=== PATIENT | male | born 1990 | race Hispanic/Latino ===

== ENCOUNTER 2019-06-03 10:42 | Emergency (ER) | payer SELFPAY ==
[2019-06-03 10:43] VITALS: BP 139/81; PULSE 84; RESP 16; TEMP 36.6; O2SAT 100; BMI 22.6
--- NOTE | 2019-06-03 11:12 | CT_ITS ---
STUDY: CT ABDOMEN AND PELVIS WITHOUT CONTRAST REASON FOR EXAM: Male, 29 years old. RT FLANK PAIN, NO PREV HX OF [place] RADIATION DOSAGE (If Supplied By Facility): CTDIvol = ( 6.21 ) mGy, DLP = ( 299.21 ) mGycm TECHNIQUE: Transaxial images were obtained from the dome of the diaphragm to the symphysis pubis without oral contrast, and without intravenous contrast. Sagittal and coronal images were reconstructed. Individualized dose optimization techniques were used for this CT. COMPARISON: None. FINDINGS: The visualized lung bases are unremarkable. The visualized portions of the heart are within normal limits. Normal liver. Normal gallbladder and extrahepatic biliary system. Normal spleen. Normal pancreas. Normal bilateral adrenal glands. Normal right kidney. Normal left kidney. Normal visualized stomach. Normal small intestine. There is circumferential thickening of the colon wall without demonstrated pericolonic inflammatory changes. The appendix is visualized and appears normal. Normal abdominal aorta. Normal inferior vena cava. Normal retroperitoneum. Normal urinary bladder. Normal abdominal wall. Normal osseous structures. CT/Abdomen/Pelvis without Cont IMPRESSION: No hydronephrosis or urolithiasis. Colon wall thickening, consistent with colitis. Electronically Signed: Sree Arteaga MD at 12:22 EST Tel , Service support ,
--- NOTE | 2019-06-03 11:14 | ED.DCSUM_ITS ---
- ER Visit Summary Date of Service: 06/03/19 Chief Complaint: Right flank pain with nausea and vomiting. History of Present Illness: The patient is a 29 M with no past medical or surgical history. Sunday last week he did start feeling poorly over the weekend he developed right flank pain. And is started having nausea and vomiting. Subjective fever and chills. No dysuria. No melena. No diarrhea. Also states he has had some mild anterior abdominal pain. No prior history. Family history of gallbladder disease but not known kidney stones that he is aware of. Physical Examination: Young male no acute distress vital signs are stable afebrile. Female present the room. H EENT exam unremarkable. Neck nontender. Lungs clear to auscultation bilaterally. Heart regular rhythm no murmur. Abdomen soft mild tenderness right upper quadrant. No organomegaly or masses. No peritoneal signs. No McBurney's point tenderness. No Ramirez sign. No signs of obstruction. Left side is nontender. Patient moving all 4 extremities. Neurovascular intact. Back nontender. Skin normal. No jaundice. Neurologically is awake and alert with no focal motor deficits. Test Results: White count 8. Hemoglobin 16. Chemistries normal normal gap and creatinine. Liver enzymes normal. Lipase normal. UA normal. CT abdomen pelvis without contrast shows some mild colonic thickening consistent with a nonspecific colitis. I discussed all test results with the patient and his significant other. He did bring up that he forgot to mention earlier that he was told previously he had a colitis but he never followed up to have a colonoscopy or a biopsy. Emergency Department Course and Treatment: Patient treated with IV fluids, Zofran, morphine and Toradol. Labs and CAT scan to be obtained. Differential would include acute kidney stone versus gallbladder disease versus other. Repeat abdominal exam is doing well. He can be discharged to home. Treatment Plan: Follow-up with a local primary care physician. Disposition: Discharge Impression: Acute right flank pain with nausea and vomiting secondary to nonspecific colitis of uncertain etiology This note was generated with [employer] dictation software. It may contain incorrect words, spelling, and punctuation that were not noted in review of the chart prior to signing ED Disposition - Plan for ED Patient: Referrals: Care Physician,No Primary [Primary Care Provider] -
[2019-06-03 11:19] LABS: Bacteria 0 SEEN /hpf (None Seen); Mucous, Urine 0 SEEN /hpf (<or=2+); Red Blood Cells-Urine 0 SEEN /hpf (0-5); Squamous Epithelial Cells - UA 0 SEEN /hpf (0-5); White Blood Cells 0 SEEN /hpf (0-5)
[2019-06-03 11:22] LABS: Absolute Lymphocyte Count 2.01 X10^3/uL (0.83-4.51); Absolute Neutrophil Count 5.8 X10^3/uL (2.0-7.7); Basophil# 0.04 X10^3/uL; Basophil% 0.5 % (0-1); Eosinophil# 0.04 X10^3/uL; Eosinophils% 0.5 % (0-5); Lymphocyte # 2.01 X10^3/ul (4.0); Lymphocyte % 22.9 % (19-41); Mean Corpuscular Hgb 31.1 pg (27.0-32.0); Mean Corpuscular Volume 91.4 fL (80-94); Mean Platelet Vol. 9.9 fl (6.2-12.0); Monocyte# 0.83 X10^3/uL; Monocyte% 9.5 % (0-10); NRBC Flagged by Analyzer 0 % (0-5); Platelet Count 276 K/mm3 (150-450); RBC Distribution Width CV 12.7 % (11.6-14.6); RBC Distribution Width SD 42.3 fl (35.1-43.9); Red Blood Count 5.14 M/mm3 (4.6-6.2); White Blood Count 8.8 K/mm3 (4.4-11.0)
[2019-06-03] MEDS: 0.9% Normal Saline 1,000 ML 1000 ML IV (11:23)
[2019-06-03 11:24] LABS: Color, Urine Yellow (Yellow); Glucose, Dipstick Normal (Normal); Ketone-Dipstick Negative (Negative); Leukocyte Esterase-Dipstick Negative /ul (Negative); Nitrite-Dipstick Negative (Negative); Occult Blood-Urine 10 /ul (Negative); Protein-Dipstick Negative (Negative); Specific Gravity, Urine 1.015 (1.002-1.030); Urine Bilirubin Dipstick Negative (Negative); Urine Clarity Clear (Clear); Urine Urobilinogen Normal (Normal)
[2019-06-03] MEDS: Ketorolac 30 MG/ML Syringe IV (11:24)
[2019-06-03] MEDS: morphine 8 MG/ML Syringe IV (11:24)
[2019-06-03] MEDS: Ondansetron 4 MG/2 ML Vial IV (11:24)
[2019-06-03 11:33] LABS: AST(SGOT) 12 U/L (15-37); Alanine Aminotransfer ALT/SGPT 36 U/L (16-61); Albumin, Serum 4.4 g/dL (3.2-5.0); Alkaline Phosphatase 66 U/L (45-117); Anion Gap 7 (5-15); BUN 12 mg/dL (7-18); BUN/Creat Ratio 14.7 RATIO (10-20); Bilirubin, Direct 0.13 mg/dL (0.00-0.30); Chloride 108 mmol/L (98-107); Creatinine, Serum 0.82 mg/dL (0.70-1.30); EST Glomerular Filtration Rate 119 mL/min (>60); Est Glom Filt Rate - Afr Amer 144 mL/min (>60); Estimated Creatinine Clearance 142.59 ml/min; Globulin 3.2 g/dL (2.2-4.2); Glucose 100 mg/dL (74-106); Lipase 113 U/L (73-393); Potassium 3.6 mmol/L (3.5-5.1); Protein, Total 7.6 g/dL (6.4-8.2); Sodium Level 141 mmol/L (136-145)
--- NOTE | 2019-06-03 12:58 | ED.DEP ---
ED Disposition - Plan for ED Patient: Disposition: Home or Assisted Living Instructions: FLANK PAIN, Uncertain Cause Referrals: Nestor Cottrell MD [[facility]] - As soon as possible Additional Instructions: Tylenol and/or Motrin for pain. Follow-up with a local physician for further testing. If you continue to have problems you may need a colonoscopy and/or biopsies to determine the specific cause of your colitis.
[2019-06-03 13:05] VITALS: BP 124/67; PULSE 71; RESP 15; O2SAT 98
== END 2019-06-03 13:06 | disposition home or self-care (01) ==
PROVIDERS: Emergency Provider Emergency Medicine
DX: K52.9 Noninfective gastroenteritis and colitis, unspecified (principal); R10.9 Unspecified abdominal pain; Z72.0 Tobacco use
CPT/HCPCS: 74176; 80048; 80076; 81001; 83690; 85025; 96361; 96374; 96375; 99284; J7030; A4216; J2405

== ENCOUNTER 2019-06-13 16:06 | Emergency (ER) | payer SELFPAY ==
[2019-06-13 16:08] VITALS: BP 136/99; PULSE 94; RESP 16; TEMP 36.9; O2SAT 99; BMI 22.8
--- NOTE | 2019-06-13 16:23 | ED.VISSUMM ---
- ER Visit Summary Date of Service: 06/13/19 Chief Complaint: Left hand injury History of Present Illness: The patient is a 29 M who presents with left hand injury that occurred yesterday. Patient was using a nail in her that nails two by fours into concrete. Patient states this kicked back into his hand when he was using it. Patient states the pain has been constant throughout the day today. Patient states the pain is sharp and throbbing. Patient states the pain is worse with movement. Patient states the pain improves with rest. Patient admits to some tingling over the dorsal aspect of his left hand. Patient denies any weakness. Patient states the pain occasionally radiates to his forearm. Physical Examination: Vital signs are stable. Patient is afebrile. Patient is in no acute distress. Musculoskeletal exam reveals tenderness over the dorsal aspect of the left hand over the third and fourth metacarpals. There is no edema or ecchymosis. There is no bony crepitance or step-off. Range of motion was limited in all motions of the left hand secondary to pain. Sensation was intact light touch in all digits. Capillary refill was less than 2 seconds in all digits. Radial pulses are equal bilaterally. Test Results: X-rays of the left hand were obtained. There is no acute fracture. These were interpreted by the radiologist and myself. Emergency Department Course and Treatment: Patient was instructed to ice and elevate the left hand. Patient was instructed to take ibuprofen as needed for pain. Patient was instructed to follow-up with his primary care physician in 7 to 10 days. Patient understood and was agreeable with the plan. All questions were answered. Disposition: Discharge home Impression: Left hand contusion This note was generated with [employer] dictation software. It may contain incorrect words, spelling, and punctuation that were not noted in review of the chart prior to signing ED Disposition - Plan for ED Patient: Disposition: Home or Assisted Living Diagnosis: Contusion of left hand, initial encounter Instructions: CONTUSION, Upper Extremity Referrals: Care Physician,No Primary [Primary Care Provider] - Collin Yarbrough DO [NON CLINICAL AFFILIATE] - 5-7 Days
--- NOTE | 2019-06-13 16:30 | RAD_ITS ---
STUDY: X-RAY - LEFT HAND REASON FOR EXAM: Male, 29 years old. Injury. Pain. TECHNIQUE: Three view(s) of the hand. COMPARISON: None. FINDINGS: Bones: There are no acute osseous abnormalities. Joints: The joints are unremarkable. Soft tissues: The soft tissues are unremarkable. Foreign body: None RAD/Hand Min 3 Views IMPRESSION: No acute abnormalities are seen in the hand. Electronically Signed: Orlando Coronado MD at 16:53 EST , Service support ,
== END 2019-06-13 16:59 | disposition home or self-care (01) ==
PROVIDERS: Emergency Provider Emergency Medicine
DX: S60.222A Contusion of left hand, initial encounter (principal); W22.8XXA Striking against or struck by other objects, initial encounter; Y93.89 Activity, other specified; Z72.0 Tobacco use
CPT/HCPCS: 73130; 99283

== ENCOUNTER 2020-04-06 11:53 | Emergency (ER) | payer SELFPAY ==
[2020-04-06 11:53] VITALS: BP 153/77; PULSE 63; RESP 16; TEMP 36.6; O2SAT 99; BMI 21.4
--- NOTE | 2020-04-06 12:05 | ED.VIS.GEN ---
History of Present Illness Chief Complaint: Lower Extremity Injury Informant: Patient Onset: Yesterday Context: Gradual Onset Timing: Continuous Current Severity: Moderate Maximum Severity: Moderate Narrative: The patient is an otherwise healthy 30-year-old male that presents to the emergency department with right foot pain. The patient cannot recall any trauma. He states that today, he noticed there is a lot of bruising around his foot. He states that he does stand with his foot bent against a concrete pillar at work. Today, he had a difficult time putting pressure on his foot. He is otherwise been in his normal state of health. Prior similar symptoms: No Recent Illness/Hospitalization: No Past Medical History - Allergies and Home Meds Allergies/Adverse Reactions: Allergies No Known Allergies Allergy (Verified 06/13/19 16:06) Primary Care Physician: Care Physician,No Primary [Primary Care Provider] - Prior records reviewed: Yes Past Medical History: None Surgical History: no surgical history Smoking Status: Never smoker Review of Systems General: Denies: Chills, Fever, Sweats Eyes: Denies: Visual changes - bilaterally, Diplopia ENT: Denies: Rhinorrhea, Sore throat Cardiovascular: Denies: Chest pain, Palpitations Respiratory: Denies: Dyspnea, Cough, Dyspnea on exertion Gastrointestinal: Denies: Abdominal pain, Nausea, Vomiting, Diarrhea, Melena, Hematochezia Genitourinary: Denies: Dysuria, Hematuria, Frequency Musculoskeletal: Denies: Back pain, Extremity Pain Skin: Denies: Rash, Wounds Neurological: Denies: Headache, Weakness, Numbness Physical Exam Vital Signs/Narrative: Vital Signs Temp Pulse Resp BP Pulse Ox 04/06/20 11:53 97.8 F 63 16 153/77 H 99 Inital Vital Signs reviewed: Yes General: Well nourished, Well developed, No Acute Distress Head: Normocephalic, Atraumatic Eyes: Perrl, EOMI ENT: Moist mucous membranes, No rhinorrhea Neck: Supple, Nontender Cardiovascular: Regular rate, Regular rhythm, No murmurs Respiratory: No distress, CTA bilaterally, Chest nontender Abdomen: Soft, Nontender, Nondistended, Normal bowel sounds Back: Nontender, Normal Inspection Extremities: No edema, Tenderness - The patient does have ecchymosis on the dorsum of the foot. His pulses are normal. There is no deformity. Sensation is preserved. Skin: Normal color, No rash Neurological: Alert, Oriented x3, Cranial nerves II-XII grossly intact, Normal Strength, Normal Sensation Psychological: Normal affect, Normal Mood Diagnostic/Tx/Re-eval Clinical Impression(s) from Imaging Studies Foot X-Ray 04/06/20 12:10 IMPRESSION: Pes planus. Otherwise, unremarkable x-ray examination of the right foot. Electronically Signed: Idris Palacios MD at 12:42 EDT Tel , Service support , - Medical Decision Making Clinical Impression(s) from Imaging Studies Foot X-Ray 04/06/20 12:10 IMPRESSION: Pes planus. Otherwise, unremarkable x-ray examination of the right foot. Electronically Signed: Idris Palacios MD at 12:42 EDT Tel , Service support , The patient has ecchymosis over the head of the first MTP. There is no significant erythema. He is very tender to palpation. He cannot recall any specific trauma. I did obtain plain films. These were unremarkable. I do have some suspicion this may be gout especially given the location of his pain. Patient is not a diabetic. He has no history of kidney disease. I will treat him with a short burst of prednisone and analgesics along with a postop shoe. He will be discharged home. Impression 1. Right foot pain ED Disposition - Plan for ED Patient: Instructions: ED FOOT CONTUSION Prescriptions: Prednisone [Deltasone] 40 mg PO DAILY #10 tab Prescription Printed Hydrocodone Bitart/Apap 5-325 [[place] 5MG-325MG] 1 tab PO Q6H PRN PRN 3 Days #10 tab PRN Reason: Pain Prescription Printed Referrals: Care Physician,No Primary [Primary Care Provider] -
--- NOTE | 2020-04-06 12:10 | RAD_ITS ---
STUDY: X-RAY - RIGHT FOOT CLINICAL: Pain and bruising in great toe, unsure of injury. TECHNIQUE: 3 view(s) of the foot. COMPARISON: None. FINDINGS: Normal talus, calcaneus, and tarsal bones. There is pes planus. Normal visualized subtalar, talonavicular, calcaneocuboid, tarsal and tarsometatarsal articulations. Normal metatarsi. Normal metatarsophalangeal joint of the great toe. Normal tibial and fibular sesamoid bones. Normal interphalangeal joint of the great toe. Normal phalanges of the great toe. Normal second through fifth metatarsophalangeal joints. Normal interphalangeal joints and phalanges of the lesser toes. The soft tissue structures are unremarkable. RAD/Foot min 3 Views IMPRESSION: Pes planus. Otherwise, unremarkable x-ray examination of the right foot. Electronically Signed: Idris Palacios MD at 12:42 EDT Tel , Service support ,
[2020-04-06] MEDS: HYDROcodone Bitartrate/Apap 5/325 Tablet PO (14:00)
[2020-04-06 14:01] VITALS: PULSE 72; RESP 17; O2SAT 98
== END 2020-04-06 14:02 | disposition home or self-care (01) ==
PROVIDERS: Emergency Provider Emergency Medicine
DX: M79.671 Pain in right foot (principal); S90.31XA Contusion of right foot, initial encounter; X58.XXXA Exposure to other specified factors, initial encounter; Y93.9 Activity, unspecified; Y92.9 Unspecified place or not applicable; Y99.9 Unspecified external cause status
CPT/HCPCS: 73630; 99281

== ENCOUNTER 2020-06-25 20:10 | Emergency (ER) | payer OTHER, SELFPAY ==
[2020-06-25 20:10] VITALS: BP 124/81; PULSE 90; RESP 18; TEMP 36.3; O2SAT 98; BMI 23.0
--- NOTE | 2020-06-25 20:30 | ED.DCSUM_ITS ---
- ER Visit Summary Date of Service: 06/25/20 Chief Complaint: Dental pain History of Present Illness: The patient is a 30 M with no primary care physician or dentist. He reports that he has pain in his left mandibular second molar that began approximately 1 week ago. States that tooth actually cracked lupe roximately 1 month ago. He describes the pain as a sharp, pressure this time 10 at worst and a 10 currently. Is worsened by eating. He is not taken anything for pain. Review of system patient complains of chills. He also complains he had 4 episodes of diarrhea today. No blood in his stools or black tarry stools. Physical Examination: Vitals: Stable. Afebrile. Mouth: No trismus. No edema of the floor of the mouth. Pain with percussion of left mandibular second molar which is eroded to the gumline. The first molars extracted. The wisdom tooth is in place, but has obvious caries. There is widespread dental decay. General: A&O x 3. NAD. Cardiovascular exam: Regular rate and rhythm, no murmur, rub or gallop. Respiratory exam: Clear to auscultation bilaterally. No wheezes or stridor. Abdominal exam: Soft, nontender, nondistended, normal bowel sounds. No peritoneal signs. Extremity: No clubbing, cyanosis, or edema. Emergency Department Course and Treatment: Patient was treated with [place], naproxen, and penicillin. Treatment Plan: Patient will be discharged on the above medications instructed to follow-up with dentist soon as possible. Return to the emergency department for any worsening symptoms. Disposition: To home in improved and stable condition. Impression: 1. Dental pain. This note was generated with [employer] dictation software. It may contain incorrect words, spelling, and punctuation that were not noted in review of the chart p rior to signing ED Disposition - Plan for ED Patient: Instructions: ED Dental Pain Prescriptions: Naproxen [Naprosyn] 500 mg PO BID #14 tablet Hydrocodone Bitart/Apap 5-325 [[place] 5MG-325MG] 1 tablet PO Q4H PRN PRN 2 Days #10 tablet PRN Reason: Pain Penicillin V Potassium 500 mg PO 4X/DAY #40 tablet Referrals: Dentist,Your [STAFF PHYSICIAN] - As soon as possible
[2020-06-25] MEDS: Naproxen 250 MG Tablet 500 MG PO (21:29)
[2020-06-25] MEDS: Penicillin Vk 250 MG Tablet 500 MG PO (21:29)
[2020-06-25] MEDS: HYDROcodone Bitartrate/Apap 5/325 Tablet PO (21:30)
== END 2020-06-25 21:33 | disposition home or self-care (01) ==
PROVIDERS: Emergency Provider Emergency Medicine
DX: K08.89 Other specified disorders of teeth and supporting structures (principal); K02.9 Dental caries, unspecified; R19.7 Diarrhea, unspecified; R51.9 Headache, unspecified; Z72.0 Tobacco use
CPT/HCPCS: 99282; A4216

== ENCOUNTER 2020-07-12 22:57 | Emergency (ER) | payer OTHER, SELFPAY ==
[2020-07-12 23:00] VITALS: BP 150/108; PULSE 109; RESP 18; TEMP 35.5; O2SAT 96; BMI 23.7
--- NOTE | 2020-07-12 23:19 | ED.DCSUM_ITS ---
History of Present Illness Chief Complaint: Dental Informant: Patient Narrative: 30-year-old male presenting with left sided mandibular pain. Patient had his wisdom teeth removed on Sunday. Patient previously seen in the ED prior to the extraction. He was given Percocet for his dental pain as well as penicillin VK. He followed up with his dental professional and has a wisdom teeth removed. He has been given 2 prescriptions for Percocet since then. Patient states that he noticed that he has some discoloration on the anterior portion of his neck which looks like a bruise. He states that his neck does not hurt. He has no problems with swallowing or breathing. Patient states that if he pushes on his neck hard enough that it feels like it closes. When he does not push on his neck is throat is fine. Patient also complaining of left-sided back pain in the lower back. He denies any traumatic injury. Patient has no loss of bladder or bowel control. Patient does state that he has decreased urine output. He states he has been drinking Ensure and water. He has no dysuria. He has no hematuria. He has no change in bowel habits. Past Medical History - Allergies and Home Meds Allergies/Adverse Reactions: Allergies No Known Allergies Allergy (Verified 07/12/20 23:03) Primary Care Physician: Care Physician,No Primary [Primary Care Provider] - Surgical History: no surgical history Lives: Spouse/ Significant Other Smoking Status: Never smoker Alcohol: None Drugs: None Review of Systems General: Denies: Chills, Fever, Sweats Eyes: Denies: Visual changes - bilaterally, Diplopia ENT: Reports: - - Left-sided gum pain after wisdom tooth removal. Denies: Rhinorrhea, Sore throat Cardiovascular: Denies: Chest pain, Palpitations Respiratory: Denies: Dyspnea, Cough, Dyspnea on exertion Gastrointestinal: Denies: Abdominal pain, Nausea, Vomiting, Diarrhea, Melena, Hematochezia Genitourinary: Reports: - - Decreased urine output. Denies: Dysuria, Hematuria Musculoskeletal: Reports: Back pain. Denies: Neck pain, Extremity Pain Skin: Denies: Rash, Wounds Neurological: Denies: Headache, Weakness, Numbness Psych: Denies: Depression, Anxiety Physical Exam Vital Signs/Narrative: Vital Signs Temp Pulse Resp BP Pulse Ox 07/12/20 23:00 96 F L 109 H 18 150/108 H 96 Inital Vital Signs reviewed: Yes General: Well nourished, No Acute Distress Head: Normocephalic, Atraumatic Eyes: Perrl, EOMI ENT: Moist mucous membranes, No rhinorrhea, - - Left-sided gingival pain status post wisdom tooth removal. No visible dry socket. No active bleeding. No significant swelling. No sublingual edema. Neck: Supple, No lymphadenopathy, - - Discoloration of the anterior neck which is slightly yellow/brown. Nontender to palpation. No lymphadenopathy. Cardiovascular: Regular rate, Regular rhythm Back: - - Tenderness to palpation left lumbar paraspinal musculature.. Negative for: Spinal tenderness Extremities: Nontender, No edema Skin: Normal color, No rash Neurological: Alert, Oriented x3, Cranial nerves II-XII grossly intact, Normal Strength, Normal Sensation Psychological: Normal affect, Normal Mood Diagnostic/Tx/Re-eval Clinical Impression(s) from Imaging Studies Abdomen/Pelvis CT 07/13/20 00:02 IMPRESSION: There is no obstructive uropathy, obstructive renal or ureteral calculi. There is no appendicitis, diverticulitis, ascites, abscess, collection, perforation or obstruction. Electronically Signed: Amaris Navas MD at 1:06 EST , Service support , Laboratory Data 07/12/20 07/13/20 23:05 00:05 Sodium 138 Potassium 4.0 Chloride 104 Carbon Dioxide 29.0 Anion Gap 5 BUN 11 Creatinine 0.72 Estim Creat Clear Calc 164.66 Est GFR (MDRD) Af Amer 164 Est GFR (MDRD) Non-Af 135 BUN/Creatinine Ratio 15.2 Glucose 91 Calcium 9.1 Urine Color Yellow Urine Clarity Clear Urine pH 7.0 Ur Specific [place] 1.010 Urine Protein Negative Urine Glucose (UA) Normal Urine Ketones Negative Urine Occult Blood 10 H Urine Nitrite Negative Urine Bilirubin Negative Urine Urobilinogen Normal Ur Leukocyte Esterase Negative Urine RBC 0-5 SEEN Urine WBC 0 SEEN Ur Squamous Epith Cells 0 SEEN Urine Bacteria 0 SEEN Urine Mucus 0 SEEN - Medical Decision Making Patient presenting for evaluation of dental pain and bruising on the neck. Neck is supple without lymphadenopathy. There is no crepitance. No stridor. Oropharynx is patent. No sublingual edema. The patient's left mandibular wisdom teeth have been removed. There is no active bleeding or swelling. There does not appear to be a sign of infection. Patient also complained of left flank pain. There was a small amount of blood in his urine so I did check a BMP which is normal. CT of the abdomen pelvis without contrast shows no ureteral stones or signs of previous kidney stone. Patient will be given muscle relaxer for home. He requested antibiotic for his tooth. He will be started on Augmentin. Patient stable for discharge at this time. Impression: 1. Postop wound check?status post wisdom tooth removal 2. Left-sided back pain ED Disposition - Plan for ED Patient: Disposition: Home or Assisted Living Instructions: ED Dental Pain, ED Back Sprain/Strain Referrals: Care Physician,No Primary [Primary Care Provider] -
[2020-07-12 23:21] VITALS: BP 132/80; PULSE 80; RESP 16; TEMP 37; O2SAT 98
[2020-07-12 23:23] LABS: Bacteria 0 SEEN /hpf (None Seen); Mucous, Urine 0 SEEN /hpf (<or=2+); Squamous Epithelial Cells - UA 0 SEEN /hpf (0-5); White Blood Cells 0 SEEN /hpf (0-5)
[2020-07-12 23:24] LABS: Color, Urine Yellow (Yellow); Glucose, Dipstick Normal (Normal); Ketone-Dipstick Negative (Negative); Leukocyte Esterase-Dipstick Negative /ul (Negative); Nitrite-Dipstick Negative (Negative); Occult Blood-Urine 10 /ul (Negative); Protein-Dipstick Negative (Negative); Urine Bilirubin Dipstick Negative (Negative); Urine Clarity Clear (Clear); Urine Urobilinogen Normal (Normal)
[2020-07-12 23:31] LABS: Red Blood Cells-Urine 0-5 SEEN /hpf (0-5)
[2020-07-13] MEDS: Ketorolac 15 MG/ML Vial IV
--- NOTE | 2020-07-13 00:02 | CT_ITS ---
STUDY: CT ABDOMEN AND PELVIS WITHOUT CONTRAST REASON FOR EXAM: Male, 30 years old. LT FLANK PAIN AND PAINFUL URINATION RADIATION DOSAGE (If Supplied By Facility): CTDIvol = ( 6.18 ) mGy, DLP = ( 310.41 ) mGycm TECHNIQUE: Transaxial 2.5 mm images were obtained from the dome of the diaphragm to the symphysis pubis without oral contrast, and without intravenous contrast. Sagittal and coronal images were reconstructed. This examination is limited for the evaluation of gastrointestinal, solid organs and vascular structures due to the lack of intravenous and oral contrast. Individualized dose optimization techniques were used for this CT. COMPARISON: CT abdomen pelvis 06/03/2019 FINDINGS: The visualized lung bases are unremarkable. The visualized portions of the heart are within normal limits. Normal liver. Normal gallbladder and extrahepatic biliary system. Normal spleen. Normal pancreas. Normal bilateral adrenal glands. Normal right kidney. Normal left kidney. Normal visualized stomach. Normal small intestine. Normal colon. The appendix is visualized and appears normal. Normal abdominal aorta. Normal inferior vena cava. Normal retroperitoneum. Normal urinary bladder. Normal abdominal wall. Normal osseous structures. CT/Abdomen/Pelvis without Cont IMPRESSION: There is no obstructive uropathy, obstructive renal or ureteral calculi. There is no appendicitis, diverticulitis, ascites, abscess, collection, perforation or obstruction. Electronically Signed: Amaris Navas MD at 1:06 EST , Service support ,
[2020-07-13 00:06] VITALS: BP 126/84; PULSE 75; RESP 18; TEMP 37.1; O2SAT 97
[2020-07-13 00:32] LABS: Anion Gap 5 (5-15); BUN 11 mg/dL (7-18); BUN/Creat Ratio 15.2 RATIO (10-20); Calcium,Total 9.1 mg/dL (8.5-10.1); Chloride 104 mmol/L (98-107); Creatinine, Serum 0.72 mg/dL (0.70-1.30); EST Glomerular Filtration Rate 135 mL/min (>60); Est Glom Filt Rate - Afr Amer 164 mL/min (>60); Estimated Creatinine Clearance 164.66 ml/min; Glucose 91 mg/dL (74-106); Sodium Level 138 mmol/L (136-145)
[2020-07-13] MEDS: Amox/Clavulanate 875 MG Tablet PO (01:35)
[2020-07-13 01:36] VITALS: PULSE 76; RESP 16; O2SAT 98
== END 2020-07-13 01:37 | disposition home or self-care (01) ==
PROVIDERS: Emergency Provider Student in an Organized Health Care Education/Training Program
DX: K08.89 Other specified disorders of teeth and supporting structures (principal); R68.84 Jaw pain; Z98.818 Other dental procedure status; S10.93XA Contusion of unspecified part of neck, initial encounter; X58.XXXA Exposure to other specified factors, initial encounter; Y93.9 Activity, unspecified; Y92.9 Unspecified place or not applicable; Y99.9 Unspecified external cause status; M54.5 Low back pain; R10.9 Unspecified abdominal pain; R31.9 Hematuria, unspecified
CPT/HCPCS: 74176; 80048; 81001; 96374; 99285; A4216

== ENCOUNTER 2021-06-27 12:58 | Emergency (ER) | payer BC, SELFPAY ==
[2021-06-27 12:58] VITALS: BP 158/109; PULSE 84; RESP 16; TEMP 36.7; O2SAT 99; BMI 22.4
--- NOTE | 2021-06-27 16:36 | EDS_ITS ---
HPI History of Present Illness Chief Complaint: Nausea/Vomiting Informant: patient Narrative Narrative: 31-year-old male presents to the emergency room with vomiting. Tells me that he went out [place] and had 3 drinks. He states he has not really drank for a while and went to bed feeling slightly intoxicated. When he woke up he was vomiting. He states he is now vomited since then. He states he cannot keep anything down other than the bottle of water that is empty sitting next to him. He denies any fever or diarrhea. He notes some generalized abdominal discomfort. No swelling. No bad food exposures. No recent antibiotic no blood in the emesis. He tells me that he feels very dehydrated. He notes his hands are tingling. PFSH PFSH Medical History no medical history no medical history Home Medications amoxicillin-pot clavulanate 875 mg PO Q12H #20 tab 07/13/20 [Rx Last Taken Unknown] cyclobenzaprine 10 mg PO Q8H PRN PRN #15 tab 07/13/20 [Rx Last Taken Unknown] ondansetron 4 mg PO Q6H PRN PRN #15 tab 06/27/21 [Rx Last Taken Unknown] Allergy/AdvReac Type Severity Reaction Status Date / Time No Known Allergies Allergy Verified 06/27/21 13:00 Surgical History no surgical history no surgical history Social History (Updated 06/27/21 @ 16:[address] Jatinder Davis, DO) Smoking Status: Current every day smoker tobacco type: cigarettes substance use type: does not use ROS ROS ED Constitutional Constitutional ED: Denies chills or weight loss Eyes Eyes: Denies change in vision or diplopia ENT ENT ED: Denies ear pain, rhinorrhea or sore throat Cardiovascular Cardiovascular: Denies chest pain, orthopnea, palpitations or racing heartbeat Respiratory/Chest Respiratory/Chest: Denies cough, dyspnea or orthopnea Gastrointestinal Gastrointestinal: Reports abdominal pain, constipation, nausea and vomiting; Denies diarrhea Genitourinary Genitourinary ED: Denies dysuria, hematuria or urinary frequency Musculoskeletal Musculoskeletal: Denies arthralgias or myalgias Integumentary Denies abscess or rash Neurologic Neurologic: Denies headache(s) or weakness Psychiatric Psychiatric: Denies anxiety, depression, suicidal ideation or suicidal thoughts Endocrine Endocrinology: Denies polydipsia, polyphagia or polyuria Allergic/Immunologic Allergic/Immunologic ED: Denies mouth swelling, tongue swelling or urticaria EXAM Physical Exam Narrative Exam Narrative: Patient laying back in bed with his arms behind his head. There is an empty bottle of water next to him and a bottle of tea that has not been drunk next to that. Const Vital Signs: 06/27/21 12:58 Temperature 98.0 F Temperature Source Temporal Pulse Rate 84 Respiratory Rate 16 Blood Pressure 158/109 H Blood Pressure Mean 125 Pulse Ox 99 Oxygen Delivery Method Room Air Positive well nourished and well developed General Appearance ED: well developed HEENT Reports normocephalic, head/scalp atraumatic and moist mucous membranes trauma Eyes PERRL and EOMs intact bilaterally Neck no lymphadenopathy, supple and no JVD Resp normal respiratory effort and clear to auscultation bilaterally Cardio regular rate, regular rhythm and no murmurs GI normal to inspection, nondistended, normoactive bowel sounds and non-tender Palpation: soft Back/Spine no CVA tenderness and normal ROM Extremity normal to inspection General Extremety ED: Negative for edema General Extremity: Negative for edema Neuro oriented x3 and CN's II-XII intact bilaterally Sensorium / Orientation: alert Motor Exam: strength 5/5 throughout Psych mental status grossly normal Mood & Affect: Negative for depressed or tearful Skin no rashes or lesions noted and no wounds MDM MDM MDM Narrative Medical decision making narrative: Patient received IV fluids and Zofran basic blood work showed a white count of 12.9. LFTs and renal function within normal limits. Electrolytes within normal limits and lipase was normal. This point patient be discharged home. I presume that this is a viral infection. I will write for Zofran. Return if worsening or concerns Lab Data Attestation: I reviewed the patient's lab results. Labs: Laboratory Results - last 24 hr 06/27/21 06/27/21 17:05 17:05 WBC 12.9 H RBC 4.94 Hgb 14.9 Hct 44.3 MCV 89.7 MCH 30.2 MCHC 33.6 RDW Std Deviation 42.8 RDW Coeff of Margarita 13.2 Plt Count 359 MPV 9.4 Immature Gran % (Auto) 0.600 Neut % (Auto) 82.1 H Lymph % (Auto) 10.0 L [place] % (Auto) 7.1 Eos % (Auto) 0.0 Baso % (Auto) 0.2 Absolute Neuts (auto) 10.6 H Absolute Lymphs (auto) 1.29 Nucleated RBC % 0 Sodium 137 Potassium 3.7 Chloride 100 Carbon Dioxide 29.0 Anion Gap 8 BUN 15 Creatinine 0.73 Estim Creat Clear Calc 155.54 Est GFR (MDRD) Af Amer 161 Est GFR (MDRD) Non-Af 133 BUN/Creatinine Ratio 20.6 H Glucose 124 H Calcium 9.4 Total Bilirubin 0.40 AST 13 L ALT 37 Alkaline Phosphatase 63 Total Protein 7.5 Albumin 4.0 Globulin 3.5 Albumin/Globulin Ratio 1.1 Lipase 98 Discharge Plan Triage Chief Complaint: Nausea/Vomiting ED Provider: Jatinder Davis Dx/Rx/DC Orders Clinical Impression: Vomiting Instructions: ED Vomiting (Adult) Prescriptions: New ondansetron [ondansetron] 4 MG tablet 4 mg PO Q6H PRN PRN (Reason: Nausea) Qty: 15 RF: 0 No Action amoxicillin-pot clavulanate 875 MG tablet 875 mg PO Q12H Qty: 20 RF: 0 cyclobenzaprine 10 MG tablet 10 mg PO Q8H PRN PRN (Reason: Muscle Spasm) Qty: 15 RF: 0 Primary Care Provider: Care Physician,No Primary Referrals: Santiago Campbell MD [STAFF PHYSICIAN] - 3-5 Days if not improving Care Physician,No Primary [Primary Care Provider] - Disposition Disposition: Home, Self Care
[2021-06-27] MEDS: Ondansetron 4 MG/2 ML Vial IV (17:12)
[2021-06-27 17:17] LABS: Absolute Lymphocyte Count 1.29 X10^3/uL (0.83-4.51); Absolute Neutrophil Count 10.6 X10^3/uL (2.0-7.7); Basophil# 0.02 X10^3/uL; Basophil% 0.2 % (0-1); Hematocrit 44.3 % (40-54); Hemoglobin 14.9 g/dL (13.0-16.5); Lymphocyte # 1.29 X10^3/ul (0.83-4.51); Mean Corp Hgb Conc 33.6 g/dL (32-36); Mean Corpuscular Hgb 30.2 pg (27.0-32.0); Mean Corpuscular Volume 89.7 fL (80-94); Mean Platelet Vol. 9.4 fl (6.2-12.0); Monocyte# 0.92 X10^3/uL; Monocyte% 7.1 % (0-10); NRBC Flagged by Analyzer 0 % (0-5); Neutrophil # 10.59 X10^3/uL (2.7-7.7); Neutrophil % 82.1 % (47-70); Platelet Count 359 K/mm3 (150-450); RBC Distribution Width CV 13.2 % (11.6-14.6); RBC Distribution Width SD 42.8 fl (35.1-43.9); Red Blood Count 4.94 M/mm3 (4.6-6.2); White Blood Count 12.9 K/mm3 (4.4-11.0)
[2021-06-27 17:34] LABS: ALB/GLOB Ratio 1.1 RATIO (0.9-2.4); AST(SGOT) 13 U/L (15-37); Alanine Aminotransfer ALT/SGPT 37 U/L (16-61); Alkaline Phosphatase 63 U/L (45-117); Anion Gap 8 (5-15); BUN 15 mg/dL (7-18); BUN/Creat Ratio 20.6 RATIO (10-20); Calcium,Total 9.4 mg/dL (8.5-10.1); Chloride 100 mmol/L (98-107); Creatinine, Serum 0.73 mg/dL (0.70-1.30); EST Glomerular Filtration Rate 133 mL/min (>60); Est Glom Filt Rate - Afr Amer 161 mL/min (>60); Estimated Creatinine Clearance 155.54 ml/min; Globulin 3.5 g/dL (2.2-4.2); Glucose 124 mg/dL (74-106); Lipase 98 U/L (73-393); Potassium 3.7 mmol/L (3.5-5.1); Protein, Total 7.5 g/dL (6.4-8.2); Sodium Level 137 mmol/L (136-145)
== END 2021-06-27 18:23 | disposition home or self-care (01) ==
PROVIDERS: Emergency Provider Emergency Medicine; Visit Provider Emergency Medicine
DX: R11.2 Nausea with vomiting, unspecified (principal); R10.84 Generalized abdominal pain; F17.210 Nicotine dependence, cigarettes, uncomplicated
CPT/HCPCS: 80053; 83690; 85025; 96361; 96374; 99283; J7030; J2405

== ENCOUNTER → 2021-10-27 | Outpatient (CLI) | payer BC, SELFPAY ==
--- NOTE | 2021-10-27 10:43 | RAD_ITS ---
STUDY: X-RAY - CERVICAL SPINE REASON FOR EXAM: Male, 31 years old. NECK PAIN TECHNIQUE: XR Spine Cervical 2 or 3 Views COMPARISON: None FINDINGS: Normal anterior atlantoaxial articulation. There is an unfused odontoid process. There is straightening of the normal cervical lordosis. Normal vertebral bodies and endplates. Normal disc space heights. Normal visualized intervertebral neuroforamina. The soft tissue structures are unremarkable. RAD/Cerv Spine 2 or 3 Views IMPRESSION: The odontoid process is obscured by the overlying hard palate on the open mouth view. Therefore, it is not fully evaluated by plain film. There is altered curvature of the normal cervical lordosis. This can suggest neck strain. Electronically Signed: Sonny Solorio MD at 21:14 EDT ,
[2021-10-27 12:43] LABS: Hemoglobin A1c 5.2 % (3.8-5.6)
[2021-10-27 12:44] LABS: Cholesterol 188 mg/dL (200); High Density Lipoprotein 45 mg/dL; Triglycerides 123 mg/dL; Very Low Density Lipoprotein 25 mg/dL (5-40)
[2021-10-27 13:47] LABS: ALB/GLOB Ratio 1.5 RATIO (0.9-2.4); AST(SGOT) 13 U/L (15-37); Alanine Aminotransfer ALT/SGPT 35 U/L (16-61); Albumin, Serum 4.4 g/dL (3.2-5.0); Alkaline Phosphatase 74 U/L (45-117); Anion Gap 8 (5-15); BUN 20 mg/dL (7-18); BUN/Creat Ratio 23.8 RATIO (10-20); Chloride 104 mmol/L (98-107); Creatinine, Serum 0.84 mg/dL (0.70-1.30); EST Glomerular Filtration Rate 113 mL/min (>60); Est Glom Filt Rate - Afr Amer 137 mL/min (>60); Glucose 109 mg/dL (74-106); Potassium 3.8 mmol/L (3.5-5.1); Protein, Total 7.4 g/dL (6.4-8.2); Sodium Level 138 mmol/L (136-145)
[2021-10-27 13:51] LABS: HIV - WCH Non-Reactive (Nonreactive); Hepatitis B Surface Antibody Reactive; Hepatitis C Antibody Non-Reactive (Nonreactive)
== END | disposition home or self-care (01) ==
LOC: MTLAB 10:42
PROVIDERS: PCP Internal Medicine; Referring Provider Internal Medicine; Visit Provider Internal Medicine
DX: F11.20 Opioid dependence, uncomplicated (principal); E11.9 Type 2 diabetes mellitus without complications; M54.12 Radiculopathy, cervical region; M54.2 Cervicalgia; G89.29 Other chronic pain; Z13.220 Encounter for screening for lipoid disorders
CPT/HCPCS: 36415; 72040; 80053; 80061; 83036; 86703; 86706; 86803

== ENCOUNTER → 2022-08-15 | Outpatient (CLI) | payer BC, SELFPAY ==
--- NOTE | 2022-08-15 07:59 | MRI_ITS ---
INDICATION: herniated disc C5-6 EXAMINATION: MRI - MR Spine Cervical W/O Contrast TECHNIQUE: Multiplanar and multisequence MR images of the cervical spine were performed. IV Contrast Dosage and Agent: None. COMPARISON: X-ray 10/27/2021 FINDINGS: VERTEBRAE: Normal vertebral bodies and posterior elements. VERTEBRAL ALIGNMENT: Normal, including the craniocervical junction and cervicothoracic junction. No spondylolisthesis. Mild reversal of the cervical lordosis stable. CERVICAL SPINAL CORD: Mild flattening of the cord anteriorly at C4-5 and C5-6 due to pathology detailed below. Normal cord signal intensity. C2/C3: Mild disc desiccation. C3/C4: Mild disc desiccation. C4/C5: Mild disc desiccation, small central disc herniation, mild central stenosis. C5/C6: Moderate disc desiccation, moderate loss of disc space height, small central disc herniation, mild central stenosis, bilateral facet arthropathy and uncovertebral joint disease with mild bilateral neural foraminal encroachment. Normal spinal canal and neuroforamina. C6/C7: Normal disc height and morphology. Normal spinal canal and neuroforamina. C7/T1: Normal disc height and morphology. Normal spinal canal and neuroforamina. NECK SOFT TISSUES: No prevertebral soft tissue swelling. There is no cervical adenopathy. MRI/Spine Cervical (Routine) IMPRESSION: Small central disc herniation C4-5 and C5-6 with mild central stenosis at both of these levels. Reversal of cervical lordosis likely due to spasm. Multilevel degenerative disc disease, facet arthropathy, uncovertebral joint disease and neural foraminal encroachment as above. Electronically Signed: Walker Garcia MD, IGGY at 9:37 EST ,
== END | disposition home or self-care (01) ==
PROVIDERS: PCP Internal Medicine; Referring Provider Orthopaedic Surgery; Visit Provider Orthopaedic Surgery
DX: M50.222 Other cervical disc displacement at C5-C6 level (principal)
CPT/HCPCS: 72141

== ENCOUNTER 2022-09-08 15:37 | Emergency (ER) | payer OTHER, SELFPAY ==
[2022-09-08 15:38] VITALS: BP 152/92; PULSE 85; RESP 16; TEMP 36.6; O2SAT 97; BMI 25.6
[2022-09-08 16:58] VITALS: BP 138/76; PULSE 78; RESP 18; O2SAT 98
--- NOTE | 2022-09-08 17:12 | EKG12_ITS ---
Test Reason : Blood Pressure : / mmHG Vent. Rate : 058 BPM Atrial Rate : 058 BPM P-R Int : 132 ms QRS Dur : 096 ms QT Int : 396 ms P-R-T Axes : 017 046 022 degrees QTc Int : 388 ms Sinus bradycardia with sinus arrhythmia RSR' or QR pattern in V1 suggests right ventricular conduction delay Borderline ECG Confirmed by ROC JACOB, GAMALIEL ([id number]), photography editor KOSTA BETANCOURT ([id number]) on 09/11/2022 12:27:51 P M Referred By: VERÓNICA Confirmed By:JODI BRIAN MD
--- NOTE | 2022-09-08 17:14 | EX.ED.DYSGE1 ---
HPI History of Present Illness Chief Complaint: Occup Expose Informant: patient Onset/Context/Timing Onset: Yesterday Narrative Narrative: Patient presents due to concern for exposure to sulfuric acid at work last night. 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 He states that maintenance shutdown the vents for a while. Last evening when he was at work he had noted some burning in his eyes and his throat. He left work at 4 AM this morning and went home and went to bed. When he woke up at noon his eyes and throat seem to be improved but he states he is coughing up a lot of phlegm. He feels nauseated and having abdominal cramping. His significant other called poison control and they stated that the symptoms were not typical for sulfuric acid exposure, but recommended he come in to be checked. He is also complaining of chest heaviness as if someone is pressing on his chest. [facility], [facility] Medical History Arthritis Carpal tunnel syndrome Chronic neck and back pain Gout Headache, migraine Hx of opioid abuse Seasonal allergies Home Medications buprenorphine 8 mg-naloxone 2 mg sublingual film (Suboxone) 2 film buccal DAILY 09/06/21 [History Last Taken Unknown] dicyclomine 20 mg tablet 20 mg PO BID PRN abdominal cramping #20 tabs 09/08/22 [Rx Last Taken Unknown] ondansetron 4 mg disintegrating tablet 4 mg PO Q8H PRN PRN Nausea #10 tabs 09/08/22 [Rx Last Taken Unknown] Allergy/AdvReac Type Severity Reaction Status Date / Time No Known Allergies Allergy Verified 09/08/22 15:41 Family History Other Alcoholism Arthritis Lupus Social History Smoking Status: Current every day smoker tobacco type: cigarettes Tobacco: How many years used: 12 alcohol intake: never substance use type: does not use what type of physical activity do you participate in: walking and yoga ROS ROS ED Constitutional Constitutional ED: Denies chills or fever(s) Eyes Eyes: Denies change in vision or discharge from eye(s) ENT ENT ED: Denies discharge from eye(s), rhinorrhea or sore throat Cardiovascular Cardiovascular: Reports chest pain; Denies palpitations Respiratory/Chest Respiratory/Chest: Reports cough; Denies dyspnea Gastrointestinal Gastrointestinal: Reports abdominal pain and nausea; Denies diarrhea or vomiting Genitourinary Genitourinary ED: Denies difficulty urinating or dysuria Musculoskeletal Musculoskeletal: Denies back pain or extremity pain Integumentary Denies Abrasions or rash Neurologic Neurologic: Denies headache(s) or weakness Allergic/Immunologic Allergic/Immunologic ED: Denies lip swelling or urticaria EXAM Physical Exam Const Vital Signs: 09/08/22 15:38 09/08/22 16:58 09/08/22 18:10 Temperature 98 F Temperature Source Temporal Pulse Rate 85 78 57 L Respiratory Rate 16 18 16 Blood Pressure 152/92 H 138/76 H 127/71 H Blood Pressure Mean 112 96 89 Pulse Ox 97 98 95 Oxygen Delivery Method Room Air Room Air Room Air Positive well nourished and well developed General Appearance ED: well developed HEENT Reports normocephalic and head/scalp atraumatic Eyes PERRL and EOMs intact bilaterally Neck supple Chest Wall inspection of chest normal and palpation of chest normal Resp normal respiratory effort and clear to auscultation bilaterally Cardio regular rate and regular rhythm GI non-tender Auscultation: hypoactive bowel sounds Palpation: soft Back/Spine no CVA tenderness Extremity normal to inspection Neuro oriented x3 and no sensory deficits noted Sensorium / Orientation: alert Motor Exam: strength 5/5 throughout Psych mental status grossly normal Skin no rashes or lesions noted MDM MDM MDM Narrative Medical decision making narrative: Patient was given Zofran and Bentyl for his of nausea and abdominal cramping. Two-view chest x-ray obtained given his pain and shortness of breath. EKG obtained given his chest pain. Radiography Diagnostic Testing: Clinical Impression(s) from Imaging Studies Chest X-Ray 09/08/22 17:35 IMPRESSION: No radiographic evidence of acute cardiopulmonary disease. Electronically Signed: Sonny Solorio MD at 17:58 EDT , Treatment and Re-Evaluation :: Patient has been on cardiac tech with no evidence of arrhythmia. EKG is sinus bradycardia at 58 bpm with sinus arrhythmia. No acute ischemia. Two-view chest x-ray per my interpretation reveals no abnormalities. On repeat evaluation patient's abdominal symptoms are improving. He still does have some chest pressure. Patient will be given prescription for Zofran and Bentyl. He will be written off work tonight. Discharge Plan Triage Chief Complaint: Occup Expose ED Provider: Windy Ramirez Dx/Rx/DC Orders Clinical Impression: Abdominal cramping, Chest pain, Chemical exposure Instructions: ED Chemical Inhalation, ED Chest Pain, Uncertain Cause, ED Abdominal Pain Unkn Cause Male... Prescriptions: New ondansetron 4 mg tablet,disintegrating 4 mg PO Q8H PRN PRN (Reason: Nausea) Qty: 10 0RF dicyclomine 20 mg tablet 20 mg PO BID PRN (Reason: abdominal cramping) Qty: 20 0RF No Action buprenorphine-naloxone [Suboxone] 8-2 mg film 2 film buccal DAILY Rx Instructions: place 1 film on inside of (each) cheek Stand Alone Forms: Work Status Form Primary Care Provider: Sweta Maldonado Referrals: [facility] [Group of Physicians] - 3-5 Days Sweta Maldonado MD [Primary Care Provider] - Disposition Disposition: Home, Self Care
[2022-09-08] MEDS: Dicyclomine 10 MG Capsule 20 MG PO (17:33)
[2022-09-08] MEDS: Ondansetron ODT 4 MG Tablet PO (17:34)
--- NOTE | 2022-09-08 17:35 | RAD_ITS ---
EXAM: XR CHEST, 2 VIEWS CLINICAL INDICATION: cp TECHNIQUE: Frontal and lateral views of the chest. This report was created using [employer] report generation technology. COMPARISON: None. FINDINGS: LUNGS AND PLEURAL SPACES: Unremarkable. No consolidation or edema. No pneumothorax. No effusion. HEART: Unremarkable. Cardiac silhouette not enlarged. MEDIASTINUM: Central airways and mediastinal contour are unremarkable. BONES/JOINTS: Unremarkable. SOFT TISSUES: Unremarkable. RAD/Chest PA and Lateral IMPRESSION: No radiographic evidence of acute cardiopulmonary disease. Electronically Signed: Sonny Solorio MD at 17:58 EDT ,
[2022-09-08 18:10] VITALS: BP 127/71; PULSE 57; RESP 16; O2SAT 95
[2022-09-08 18:58] VITALS: BP 130/74; PULSE 64; RESP 18; O2SAT 100
== END 2022-09-08 19:07 | disposition home or self-care (01) ==
PROVIDERS: Emergency Provider Emergency Medicine; PCP Internal Medicine; Visit Provider Emergency Medicine
DX: R07.89 Other chest pain (principal); R10.9 Unspecified abdominal pain; Z77.098 Contact with and (suspected) exposure to other hazardous, chiefly nonmedicinal, chemicals; R05.9 Cough, unspecified; R06.02 Shortness of breath; R11.0 Nausea; F17.210 Nicotine dependence, cigarettes, uncomplicated; Z79.899 Other long term (current) drug therapy
CPT/HCPCS: 71046; 93005; 99283

== ENCOUNTER 2022-10-28 14:17 | Emergency (ER) | payer BC, SELFPAY ==
[2022-10-28 14:17] VITALS: BP 140/92; PULSE 86; RESP 16; TEMP 36.6; O2SAT 96; BMI 24.0
--- NOTE | 2022-10-28 14:37 | EX.ED.DYSGE1 ---
HPI <LAURA Rivera - Last Filed: 10/28/22 17:20> History of Present Illness Chief Complaint: Nausea/Vomiting Narrative Narrative: Patient is a 32-year-old male with history of opiate abuse who is currently on Suboxone, he has been taking 2 films for 1 year and is doing well. Patient presents to the emergency department today for nausea, vomiting, diarrhea that has been ongoing since noon yesterday. Patient describes general abdominal cramping, patient states he is throwing up every hour, now it is only bile. He denies any blood in stool or vomit. Patient denies any alcohol abuse. Patient denies any fever or chills. Denies any recent antibiotic use or sick contacts. PFS <LAURA Rivera - Last Filed: 10/28/22 17:20> [facility] Medical History Arthritis Carpal tunnel syndrome Chronic neck and back pain Gout Headache, migraine Hx of opioid abuse Seasonal allergies Home Medications buprenorphine 8 mg-naloxone 2 mg sublingual film (Suboxone) 2 film buccal DAILY 09/06/21 [History Last Taken Unknown] dicyclomine 20 mg tablet 20 mg PO BID PRN abdominal cramping #20 tabs 09/08/22 [Rx Last Taken Unknown] ondansetron 4 mg disintegrating tablet 4 mg PO Q8H PRN PRN Nausea #10 tabs 09/08/22 [Rx Last Taken Unknown] dicyclomine 20 mg tablet 20 mg PO TID PRN abdominal pain #14 tabs 10/28/22 [Rx Last Taken Unknown] ondansetron 4 mg disintegrating tablet 4 mg PO Q8H PRN PRN Nausea #14 tabs 10/28/22 [Rx Last Taken Unknown] Allergy/AdvReac Type Severity Reaction Status Date / Time No Known Allergies Allergy Verified 10/28/22 14:19 Family History Other Alcoholism Arthritis Lupus Social History Smoking Status: Current every day smoker tobacco type: cigarettes Tobacco: How many years used: 12 alcohol intake: never substance use type: does not use what type of physical activity do you participate in: walking and yoga ROS <LAURA Rivera - Last Filed: 10/28/22 17:20> ROS ED ROS Narrative Constitutional: Negative for fever, chills, weight loss, weakness Eyes: Negative for vision loss, vision change, double vision ENT: Negative for any sore throat, ear pain, congestion Cardiovascular: Negative for any chest pain, tightness, palpitations Respiratory: Negative for any cough, sputum production, hemoptysis, dyspnea, dyspnea on exertion, orthopnea Gastrointestinal: Negative for any constipation, blood in stool, blood in vomit. Positive for abdominal pain, nausea, vomiting, diarrhea : Negative for any urinary frequency, dysuria, retention, blood in urine Muscle skeletal: Negative for any muscle joint pain, stiffness, myalgias, arthralgias, neck pain, back pain Neurological: Negative for any headache, syncope, numbness or tingling, dizziness Skin: Negative for any rashes, lumps, itching, abrasions, lacerations Psychiatric: Negative for any depression, anxiety, stress, suicidal ideation, homicidal ideation Hematologic: Negative for any easy bruising, excessive bruising, easy bleeding Allergies: Negative for any eczema, hives, rash EXAM <LAURA Rivera - Last Filed: 10/28/22 17:20> Physical Exam Narrative Exam Narrative: Vital signs reviewed. Patient is in no obvious distress. Patient does appear dry on exam HEET: Head normocephalic atraumatic, TMs clear bilaterally. Posterior pharynx is clear, dry mucous membranes. Nares clear bilaterally. Neck: Supple with no lymphadenopathy or tenderness. No signs of meningismus, negative jolt sign. Cardiac: Regular rate and rhythm no murmurs gallops or rubs, equal peripheral pulses bilaterally. Respiratory: Lungs clear to auscultation bilaterally. No chest tenderness. Abdomen: Soft, nontender, nondistended. No abdominal bruit or pulsatile masses. No hepatosplenomegaly Extremities: No peripheral edema, no signs of gross trauma or deformity. Active full range of motion of all extremities. Neuro: Cranial nerves II through XII intact, no focal neurological deficits. Skin: Clean dry and intact with no rash, purpura, petechiae, vesicles or pustules. Backs/flank: No CVA tenderness, no midline spinal tenderness, no deformity. Psych: Normal mood and affect. No SI, HI or acute psychosis. Const Vital Signs: 10/28/22 14:17 10/28/22 16:17 10/28/22 17:22 Temperature 97.9 F 97.8 F Temperature Source Temporal Pulse Rate 86 78 78 Respiratory Rate 16 16 16 Blood Pressure 140/92 H 134/97 H 126/78 H Blood Pressure Mean 108 109 Pulse Ox 96 99 Oxygen Delivery Method Room Air <Dr. Windy Ramirez MD - Last Filed: 10/28/22 21:20> Physical Exam Const Vital Signs: 10/28/22 14:17 10/28/22 16:17 10/28/22 17:22 Temperature 97.9 F 97.8 F Temperature Source Temporal Pulse Rate 86 78 78 Respiratory Rate 16 16 16 Blood Pressure 140/92 H 134/97 H 126/78 H Blood Pressure Mean 108 109 Pulse Ox 96 99 Oxygen Delivery Method Room Air MDM <LAURA Rivera - Last Filed: 10/28/22 17:20> MDM Lab Data Labs: Laboratory Results - last 24 hr 10/28/22 10/28/22 10/28/22 14:45 15:30 15:30 WBC 14.6 H RBC 4.62 Hgb 14.0 Hct 40.9 MCV 88.5 MCH 30.3 MCHC 34.2 RDW Std Deviation 45.2 H RDW Coeff of Margarita 14.0 Plt Count 312 MPV 9.3 Immature Gran % (Auto) 0.400 Neut % (Auto) 70.7 H Lymph % (Auto) 19.5 [place] % (Auto) 9.2 Eos % (Auto) 0.1 Baso % (Auto) 0.1 Absolute Neuts (auto) 10.3 H Absolute Lymphs (auto) 2.84 Nucleated RBC % 0 Sodium Cancelled 139 Potassium Cancelled 3.5 Chloride Cancelled 106 Carbon Dioxide Cancelled 24.0 Anion Gap Cancelled 9 BUN Cancelled 9 Creatinine Cancelled 0.65 L Estim Creat Clear Calc Cancelled 179.08 Est GFR (MDRD) Af Amer Cancelled 183 Est GFR (MDRD) Non-Af Cancelled 151 BUN/Creatinine Ratio Cancelled 13.9 Glucose Cancelled 115 H Calcium Cancelled 8.6 Total Bilirubin Cancelled 0.40 AST Cancelled 7 L ALT Cancelled 28 Alkaline Phosphatase Cancelled 63 Total Protein Cancelled 6.4 Albumin Cancelled 3.4 Globulin Cancelled 3.0 Albumin/Globulin Ratio Cancelled 1.1 Lipase Cancelled 22 Treatment and Re-Evaluation :: Patient appears to be in no distress, vital signs are stable. Patient presents to the emergency department with nausea, vomiting, diarrhea, generalized abdominal cramping. Patient on initial examination did appear dry. Belly exam was unremarkable, soft, nontender. Initial physical exam findings were consistent with gastroenteritis, differential diagnosis include bowel obstruction, acute appendicitis, patient has no specific pain to his abdomen. Patient will receive basic laboratory values, he will receive 2 L of normal saline, IV Zofran, IV Toradol he will be reassessed On reassessment, after both liters of normal saline are infused, the patient was feeling much better. He is able to keep down fluids here. At this time, patient will be diagnosed with gastroenteritis. Belly exam remains unremarkable. He is happy with the plan of care. He will be given Zofran, Bentyl for home. He is instructed to advance his diet as tolerated, to return here for worsening abdominal pain, fever chills nausea vomiting. Patient stable for discharge <Dr. Windy Ramirez MD - Last Filed: 10/28/22 21:20> [facility] Lab Data Labs: Laboratory Results - last 24 hr 10/28/22 10/28/22 10/28/22 14:45 15:30 15:30 WBC 14.6 H RBC 4.62 Hgb 14.0 Hct 40.9 MCV 88.5 MCH 30.3 MCHC 34.2 RDW Std Deviation 45.2 H RDW Coeff of Margarita 14.0 Plt Count 312 MPV 9.3 Immature Gran % (Auto) 0.400 Neut % (Auto) 70.7 H Lymph % (Auto) 19.5 [place] % (Auto) 9.2 Eos % (Auto) 0.1 Baso % (Auto) 0.1 Absolute Neuts (auto) 10.3 H Absolute Lymphs (auto) 2.84 Nucleated RBC % 0 Sodium Cancelled 139 Potassium Cancelled 3.5 Chloride Cancelled 106 Carbon Dioxide Cancelled 24.0 Anion Gap Cancelled 9 BUN Cancelled 9 Creatinine Cancelled 0.65 L Estim Creat Clear Calc Cancelled 179.08 Est GFR (MDRD) Af Amer Cancelled 183 Est GFR (MDRD) Non-Af Cancelled 151 BUN/Creatinine Ratio Cancelled 13.9 Glucose Cancelled 115 H Calcium Cancelled 8.6 Total Bilirubin Cancelled 0.40 AST Cancelled 7 L ALT Cancelled 28 Alkaline Phosphatase Cancelled 63 Total Protein Cancelled 6.4 Albumin Cancelled 3.4 Globulin Cancelled 3.0 Albumin/Globulin Ratio Cancelled 1.1 Lipase Cancelled 22 Treatment and Re-Evaluation :: Patient appears to be in no distress, vital signs are stable. Patient presents to the emergency department with nausea, vomiting, diarrhea, generalized abdominal cramping. Patient on initial examination did appear dry. Belly exam was unremarkable, soft, nontender. Initial physical exam findings were consistent with gastroenteritis, differential diagnosis include bowel obstruction, acute appendicitis, patient has no specific pain to his abdomen. Patient will receive basic laboratory values, he will receive 2 L of normal saline, IV Zofran, IV Toradol he will be reassessed On reassessment, after both liters of normal saline are infused, the patient was feeling much better. He is able to keep down fluids here. At this time, patient will be diagnosed with gastroenteritis. Belly exam remains unremarkable. He is happy with the plan of care. He will be given Zofran, Bentyl for home. He is instructed to advance his diet as tolerated, to return here for worsening abdominal pain, fever chills nausea vomiting. Patient stable for discharge Patient seen and evaluated with PHOEBE. I personally interviewed and examined the patient. I was involved in all aspects of patient's orders, interpretation of results, and treatment. Patient presents for evaluation of nausea, vomiting, and diarrhea. Patient reports onset of symptoms yesterday. No one else at home has been sick. He states has not been able to keep down even water today so he came in for evaluation. He does report a constant nauseous feeling in his stomach. No blood associated with the vomitus or stool. Patient lying in bed no acute distress. Nontoxic-appearing. Head and neck examination unremarkable. Heart is regular rate and rhythm. Lung sounds are clear. Abdomen is soft with no focal tenderness. Hypoactive bowel sounds. Lab work obtained to evaluate for infection or dehydration. CBC reveals white count of 14.6 with 70% neutrophils. This is likely demargination from vomiting. Chemistry studies unremarkable. LFTs and lipase are normal. After Zofran, Toradol, and IV fluids patient does feel improved. He will follow a bland diet and slowly advance. Return instructions given. Discharge Plan Triage Chief Complaint: Nausea/Vomiting ED Midlevel Provider: Santiago Courtney ED Provider: Windy Ramirez Dx/Rx/DC Orders Clinical Impression: Acute dehydration, Gastroenteritis Instructions: ED Dehydration (Adult), ED Gastritis (Adult) Prescriptions: New ondansetron 4 mg tablet,disintegrating 4 mg PO Q8H PRN PRN (Reason: Nausea) Qty: 14 0RF dicyclomine 20 mg tablet 20 mg PO TID PRN (Reason: abdominal pain) Qty: 14 0RF No Action buprenorphine-naloxone [Suboxone] 8-2 mg film 2 film buccal DAILY Rx Instructions: place 1 film on inside of (each) cheek ondansetron 4 mg tablet,disintegrating 4 mg PO Q8H PRN PRN (Reason: Nausea) Qty: 10 0RF dicyclomine 20 mg tablet 20 mg PO BID PRN (Reason: abdominal cramping) Qty: 20 0RF Primary Care Provider: Sweta Maldonado Referrals: Sweta Maldonado MD [Primary Care Provider] - Activity Restrictions/Additional Instructions: Advance your diet as tolerated. Clear liquids for today, advance her diet tomorrow. Maintain hydration. Your urine should be light yellow. Disposition Disposition: Home, Self Care Discharge Date/Time: 10/28/22 17:23
[2022-10-28] MEDS: 0.9% Normal Saline 1,000 ML 1000 ML IV (14:59)
[2022-10-28] MEDS: Ketorolac 15 MG/ML Vial IV (14:59)
[2022-10-28] MEDS: 0.9% Normal Saline 1,000 ML 999 ML IV (14:59)
[2022-10-28] MEDS: Ondansetron 4 MG/2 ML Vial IV (14:59)
[2022-10-28 15:39] LABS: Absolute Lymphocyte Count 2.84 X10^3/uL (0.83-4.51); Absolute Neutrophil Count 10.3 X10^3/uL (2.0-7.7); Basophil# 0.02 X10^3/uL; Basophil% 0.1 % (0-1); Eosinophil# 0.02 X10^3/uL; Eosinophils% 0.1 % (0-5); Hematocrit 40.9 % (40-54); Lymphocyte # 2.84 X10^3/ul (0.83-4.51); Lymphocyte % 19.5 % (19-41); Mean Corp Hgb Conc 34.2 g/dL (32-36); Mean Corpuscular Hgb 30.3 pg (27.0-32.0); Mean Corpuscular Volume 88.5 fL (80-94); Mean Platelet Vol. 9.3 fl (6.2-12.0); Monocyte# 1.34 X10^3/uL; Monocyte% 9.2 % (0-10); NRBC Flagged by Analyzer 0 % (0-5); Neutrophil # 10.31 X10^3/uL (2.7-7.7); Neutrophil % 70.7 % (47-70); Platelet Count 312 K/mm3 (150-450); RBC Distribution Width SD 45.2 fl (35.1-43.9); Red Blood Count 4.62 M/mm3 (4.6-6.2); White Blood Count 14.6 K/mm3 (4.4-11.0)
[2022-10-28 16:01] LABS: ALB/GLOB Ratio 1.1 RATIO (0.9-2.4); AST(SGOT) 7 U/L (15-37); Alanine Aminotransfer ALT/SGPT 28 U/L (16-61); Albumin, Serum 3.4 g/dL (3.2-5.0); Alkaline Phosphatase 63 U/L (45-117); Anion Gap 9 (5-15); BUN 9 mg/dL (7-18); BUN/Creat Ratio 13.9 RATIO (10-20); Calcium,Total 8.6 mg/dL (8.5-10.1); Chloride 106 mmol/L (98-107); Creatinine, Serum 0.65 mg/dL (0.70-1.30); EST Glomerular Filtration Rate 151 mL/min (>60); Est Glom Filt Rate - Afr Amer 183 mL/min (>60); Estimated Creatinine Clearance 179.08 ml/min; Glucose 115 mg/dL (74-106); Lipase 22 U/L (13-75); Potassium 3.5 mmol/L (3.5-5.1); Protein, Total 6.4 g/dL (6.4-8.2); Sodium Level 139 mmol/L (136-145)
[2022-10-28 16:17] VITALS: BP 134/97; PULSE 78; RESP 16
[2022-10-28] MEDS: Dicyclomine 10 MG Capsule 20 MG PO (17:05)
[2022-10-28 17:22] VITALS: BP 126/78; PULSE 78; RESP 16; TEMP 36.6; O2SAT 99
== END 2022-10-28 17:23 | disposition home or self-care (01) ==
PROVIDERS: Nurse Practitioner; Emergency Provider Emergency Medicine; PCP Internal Medicine; Visit Provider Emergency Medicine
DX: K52.9 Noninfective gastroenteritis and colitis, unspecified (principal); E86.0 Dehydration; F17.210 Nicotine dependence, cigarettes, uncomplicated
CPT/HCPCS: 80053; 83690; 85025; 96361; 96374; 99284; J7030; A4216; J2405

== ENCOUNTER 2022-10-30 17:48 | Emergency (ER) | payer BC, SELFPAY ==
[2022-10-30 17:48] VITALS: BP 131/85; PULSE 58; RESP 16; TEMP 36.3; O2SAT 99; BMI 21.7
--- NOTE | 2022-10-30 20:50 | EDS_ITS ---
HPI History of Present Illness Chief Complaint: Nausea/Vomiting Detail of Chief Complaint: Dehydration due to nausea and vomiting Informant: patient Onset/Context/Timing Onset: Days Context: Sudden Onset Timing: Continuous Quality: Nauseous has been continuous and vomit intermittently Location: GI Current Severity: Mild Maximum Severity: Moderate Worsened by: Nothing Relieved by: Nothing Associated Symptoms Associated Symptoms: Thirst, dry mouth and lightheadedness Narrative Narrative: Patient is a 32-year-old male on Suboxone. He was seen on [place] 6. At that time he complained of nausea, vomit diarrhea. He presently denies diarrhea. He denies ill contacts. He denies fever, chills night sweats. [place] headache. Denies visual, ocular auditory symptoms. He denies respiratory or cardiac symptoms. He denies urologic symptoms. He was placed on dicyclomine for cramping. He still has intermittent cramping. His last bowel movement was this morning and formed. Prior similar symptoms: Yes Recent Illness/Hospitalization: Yes [facility] Medical History Arthritis Carpal tunnel syndrome Chronic neck and back pain Gout Headache, migraine Hx of opioid abuse Seasonal allergies Home Medications buprenorphine 8 mg-naloxone 2 mg sublingual film (Suboxone) 2 film buccal DAILY 09/06/21 [History Last Taken Unknown] dicyclomine 20 mg tablet 20 mg PO BID PRN abdominal cramping #20 tabs 09/08/22 [Rx Last Taken Unknown] ondansetron 4 mg disintegrating tablet 4 mg PO Q8H PRN PRN Nausea #10 tabs 09/08/22 [Rx Last Taken Unknown] dicyclomine 20 mg tablet 20 mg PO TID PRN abdominal pain #14 tabs 10/28/22 [Rx Last Taken Unknown] ondansetron 4 mg disintegrating tablet 4 mg PO Q8H PRN PRN Nausea #14 tabs 10/28/22 [Rx Last Taken Unknown] metoclopramide HCl 10 mg tablet 10 mg PO 4X/DAY PRN Headache #10 tabs 10/30/22 [Rx Last Taken Unknown] ondansetron 4 mg disintegrating tablet 4 mg PO Q8H PRN PRN Nausea #10 tabs 02/14 [Rx Last Taken Unknown] Allergy/AdvReac Type Severity Reaction Status Date / Time No Known Allergies Allergy Verified 10/30/22 17:51 Family History Other Alcoholism Arthritis Lupus Social History Smoking Status: Current every day smoker tobacco type: cigarettes Tobacco: How many years used: 12 alcohol intake: never substance use type: does not use what type of physical activity do you participate in: walking and yoga ROS ROS ED Constitutional Constitutional ED: Denies chills, fever(s), subjective, sweats or weight loss Eyes Eyes: Denies blurry vision, change in vision or diplopia ENT ENT ED: Denies ear pain, rhinorrhea or sore throat Cardiovascular Cardiovascular: Denies chest pain, palpitations or racing heartbeat Respiratory/Chest Respiratory/Chest: Denies cough, dyspnea or dyspnea on exertion Gastrointestinal Gastrointestinal: Reports abdominal pain, nausea, vomiting and other Details: There is no hematemesis or coffee-ground emesis. ; Denies constipation, diarrhea or melena Genitourinary Genitourinary ED: Denies dysuria, hematuria or urinary frequency Musculoskeletal Musculoskeletal: Denies arthralgias, back pain, myalgias or neck pain Integumentary Denies rash Neurologic Neurologic: Reports weakness; Denies headache(s) or paresthesias Psychiatric Psychiatric: Denies anxiety Hematologic/Lymphatic Hematologic/Lymphatic: Reports systems reviewed and no addt'l complaints, except as documented EXAM Physical Exam Const Vital Signs: 10/30/22 17:48 Temperature 97.4 F L Temperature Source Temporal Pulse Rate 58 L Respiratory Rate 16 Blood Pressure 131/85 H Blood Pressure Mean 100 Pulse Ox 99 Oxygen Delivery Method Room Air Positive well nourished and well developed Constitutional Narrative: Patient appears ill but not toxic. General Appearance ED: well developed; Negative for pallor HEENT Reports dry mucous membranes HEENT Narrative: Head is atraumatic normocephalic. Ears normal. Nares patent. Posterior pharynx out erythema or exudate. Mouth ED: Yes dry mucous membranes Mouth: dry mucous membranes Eyes PERRL and EOMs intact bilaterally General Eye ED: Negative for pale conjunctiva or scleral icterus Neck no lymphadenopathy, supple and no JVD Chest Wall inspection of chest normal Resp normal respiratory effort and clear to auscultation bilaterally Cardio regular rate, regular rhythm, S1 normal heart sound, S2 normal heart sound and no murmurs GI normal to inspection, nondistended, normoactive bowel sounds, non-tender, non- distended and no masses; Negative for hepatosplenomegaly Back/Spine no CVA tenderness Extremity normal to inspection General Extremety ED: Negative for edema General Extremity: Negative for edema Neuro oriented x3, CN's II-XII intact bilaterally and no sensory deficits noted Sensorium / Orientation: alert Psych mental status grossly normal Skin no rashes or lesions noted, no wounds and skin turgor normal General Skin Exam: Negative for jaundice or pallor MDM MDM MDM Narrative Medical decision making narrative: [place] patient dehydrated. Records from October 28 were reviewed. His work-up at that time was unremarkable. He was discharged home with dicyclomine and Zofran. He presents because of persistent nausea and vomiting spite of the Zofran. He does not have history of cyclic vomiting. Since he has been vomiting s ignificantly since Sunday we will obtain BMP to assess renal function and electrolytes. He was treated with IV fluids and Zofran. History & Record Review Additional record(s) reviewed:: Prior outpatient record, Prior ED visit and Prior labs Lab Data Attestation: I reviewed the patient's lab results. Lab results narrative: Basic metabolic panel is unremarkable. Furthermore, unchanged from prior labs Labs: Laboratory Results - last 24 hr 10/30/22 21:42 Sodium 139 Potassium 3.8 Chloride 104 Carbon Dioxide 27.0 Anion Gap 8 BUN 5 L Creatinine 0.78 Estim Creat Clear Calc 139.57 Est GFR (MDRD) Af Amer 147 Est GFR (MDRD) Non-Af 122 BUN/Creatinine Ratio 6.4 L Glucose 103 Calcium 9.2 Treatment and Re-Evaluation :: Patient was reassessed at 2250. He has had no further vomiting. He reports improvement. Plan is to discharge to home with antiemetic. Discharge Plan Triage Chief Complaint: Nausea/Vomiting ED Provider: Ming Moon Dx/Rx/DC Orders Clinical Impression: Nausea & vomiting, Acute dehydration Instructions: ED Vomiting (Adult) Prescriptions: New ondansetron [ondansetron] 4 mg tablet,disintegrating 4 mg PO Q8H PRN PRN (Reason: Nausea) Qty: 10 0RF metoclopramide HCl [metoclopramide HCl] 10 mg tablet 10 mg PO 4X/DAY PRN (Reason: Headache) Qty: 10 0RF No Action buprenorphine-naloxone [Suboxone] 8-2 mg film 2 film buccal DAILY Rx Instructions: place 1 film on inside of (each) cheek ondansetron 4 mg tablet,disintegrating 4 mg PO Q8H PRN PRN (Reason: Nausea) Qty: 10 0RF dicyclomine 20 mg tablet 20 mg PO BID PRN (Reason: abdominal cramping) Qty: 20 0RF ondansetron 4 mg tablet,disintegrating 4 mg PO Q8H PRN PRN (Reason: Nausea) Qty: 14 0RF dicyclomine 20 mg tablet 20 mg PO TID PRN (Reason: abdominal pain) Qty: 14 0RF Primary Care Provider: Sweta Maldonado Referrals: Sweta Maldonado MD [Primary Care Provider] - Disposition Disposition: Home, Self Care
[2022-10-30] MEDS: Ondansetron 4 MG/2 ML Vial IV (21:56)
[2022-10-30] MEDS: 0.9% Normal Saline 1,000 ML 1000 ML IV (21:56)
[2022-10-30 22:01] LABS: Anion Gap 8 (5-15); BUN 5 mg/dL (7-18); BUN/Creat Ratio 6.4 RATIO (10-20); Calcium,Total 9.2 mg/dL (8.5-10.1); Chloride 104 mmol/L (98-107); Creatinine, Serum 0.78 mg/dL (0.70-1.30); EST Glomerular Filtration Rate 122 mL/min (>60); Est Glom Filt Rate - Afr Amer 147 mL/min (>60); Estimated Creatinine Clearance 139.57 ml/min; Glucose 103 mg/dL (74-106); Potassium 3.8 mmol/L (3.5-5.1); Sodium Level 139 mmol/L (136-145)
[2022-10-30 23:25] VITALS: BP 129/77; PULSE 62; RESP 15; O2SAT 99
== END 2022-10-30 23:25 | disposition home or self-care (01) ==
PROVIDERS: Emergency Provider Emergency Medicine; PCP Internal Medicine; Visit Provider Emergency Medicine
DX: R11.2 Nausea with vomiting, unspecified (principal); E86.0 Dehydration; F17.210 Nicotine dependence, cigarettes, uncomplicated
CPT/HCPCS: 80048; 96361; 96374; 99283; J7030; J2405

== ENCOUNTER → 2024-01-01 | Outpatient (CLI) | payer BC, SELFPAY ==
[2024-01-01 17:51] LABS: Absolute Lymphocyte Count 1.66 X10^3/uL (0.83-4.51); Absolute Neutrophil Count 7.7 X10^3/uL (2.0-7.7); Basophil# 0.03 X10^3/uL; Basophil% 0.3 % (0-1); Eosinophil# 0.01 X10^3/uL; Eosinophils% 0.1 % (0-5); Hematocrit 44.4 % (40-54); Hemoglobin 14.5 g/dL (13.0-16.5); Lymphocyte # 1.66 X10^3/ul (0.83-4.51); Lymphocyte % 16.6 % (19-41); Mean Corp Hgb Conc 32.7 g/dL (32-36); Mean Corpuscular Hgb 30.1 pg (27.0-32.0); Mean Corpuscular Volume 92.1 fL (80-94); Mean Platelet Vol. 9.9 fl (6.2-12.0); Monocyte# 0.38 X10^3/uL; Monocyte% 3.8 % (0-10); NRBC Flagged by Analyzer 0 % (0-5); Platelet Count 326 K/mm3 (150-450); RBC Distribution Width SD 47.1 fl (35.1-43.9); Red Blood Count 4.82 M/mm3 (4.6-6.2)
[2024-01-01 18:01] LABS: Erythrocyte Sedimentation Rate 2 mm/hr (0-20)
[2024-01-01 18:08] LABS: ALB/GLOB Ratio 1.3 RATIO (0.9-2.4); AST(SGOT) 16 U/L (15-37); Alanine Aminotransfer ALT/SGPT 45 U/L (16-61); Albumin, Serum 4.2 g/dL (3.2-5.0); Alkaline Phosphatase 69 U/L (45-117); Anion Gap 5 (5-15); BUN 16 mg/dL (7-18); BUN/Creat Ratio 19.3 RATIO (10-20); CRP < 2.90 mg/L (0.0-3.0); Calcium,Total 9.3 mg/dL (8.5-10.1); Chloride 106 mmol/L (98-107); Creatinine, Serum 0.83 mg/dL (0.70-1.30); EST Glomerular Filtration Rate 113 mL/min (>60); Est Glom Filt Rate - Afr Amer 137 mL/min (>60); Globulin 3.2 g/dL (2.2-4.2); Glucose 114 mg/dL (74-106); Potassium 4.2 mmol/L (3.5-5.1); Protein, Total 7.4 g/dL (6.4-8.2); Rheumatoid Factor < 10.0 IU/mL (<15); Sodium Level 138 mmol/L (136-145); Uric Acid 4.9 mg/dL (3.5-7.2)
[2024-01-03 10:09] LABS: ANTINUCLEAR ANTIBODIES DIRECT Negative (Negative)
[2024-01-03 16:11] LABS: CCP IgG Antibodies 4 units (0-19)
== END | disposition home or self-care (01) ==
LOC: MTLAB 15:40
PROVIDERS: PCP Internal Medicine; Referring Provider Internal Medicine; Visit Provider Internal Medicine
DX: M67.80 Other specified disorders of synovium and tendon, unspecified site (principal); M25.539 Pain in unspecified wrist
CPT/HCPCS: 36415; 80053; 84550; 85025; 85652; 86038; 86140; 86200; 86225; 86235; 86431

== ENCOUNTER → 2024-01-14 | Outpatient (CLI) | payer BC, SELFPAY ==
--- NOTE | 2024-01-14 10:26 | US_ITS ---
STUDY: SUPERFICIAL ULTRASOUND - RIGHT WRIST REASON FOR EXAM: Male, 33 years old. ganglion cyst dorsal side, bilateral wrist TECHNIQUE: A superficial ultrasound was performed with real-time and static victor-scale imaging. COMPARISON: None. FINDINGS: Multiple longitudinal and transverse ultrasound images of the right wrist demonstrates a 2 x 5 cm oval anechoic mass which may represent a small ganglion. MRI may be useful. Multiple longitudinal and transverse ultrasound images left wrist do not demonstrate discrete solid or cystic mass. US/Ext Non Vasc Limited/Soft Tiss IMPRESSION: Suspect small ganglion of the right wrist. MRI may be useful. Electronically Signed: Jesus Hallman MD at 8:46 EDT ,
== END | disposition home or self-care (01) ==
LOC: US 10:24
PROVIDERS: PCP Internal Medicine; Referring Provider Orthopaedic Surgery Sports Medicine; Visit Provider Orthopaedic Surgery Sports Medicine
DX: M25.532 Pain in left wrist (principal); M25.531 Pain in right wrist
CPT/HCPCS: 76882

== ENCOUNTER → 2024-02-04 | Outpatient (CLI) | payer BC, SELFPAY ==
--- NOTE | 2024-02-04 08:00 | MRI_ITS ---
STUDY: MRI RIGHT WRIST WITHOUT CONTRAST REASON FOR EXAM: Male, 33 years old. US showing dorsal wrist mass. Right wrist ultrasound showed small ganglion cyst. TECHNIQUE: Standardized fat and water weighted pulse sequences were obtained in all 3 orthogonal planes. COMPARISON: Right wrist x-ray dated January 04, 2024. Bilateral wrist ultrasound dated January 14, 2024. FINDINGS: Normal visualized distal radius and ulna. Normal distal radioulnar Articulation (DRUJ). Normal triangular fibrocartilaginous complex (TFCC). No visualized marrow edema or occult fracture. No evidence of avascular necrosis. A small wrist joint effusion is present. There is no evidence of a volar or dorsal surface mass or cyst or lipoma. No demonstrated fluid distention of the tendon sheaths. No intramuscular edema or fluid collections or enlargement. Several small intraosseous cysts are present in the lunate of no clinical significance. Normal remaining carpal bones.. Normal radiocarpal, intercarpal and midcarpal articulations. Normal pisotriquetral articulation. Normal visualized interosseous scapholunate ligament. Normal visualized dorsal (extrinsic) ligaments. Normal visualized volar (extrinsic) ligaments. Normal extensor tendons. Normal flexor tendons. Normal carpal tunnel with a normal median nerve. Normal carpometacarpal articulation of the thumb. Normal second through fifth carpometacarpal articulations. Normal visualized metacarpal bones. There is no demonstrated soft tissue abnormality. MRI/Upper Ext Joint Only(Routine) IMPRESSION: 1. No visualized marrow edema or occult fracture. No evidence of avascular necrosis. A small wrist joint effusion is present. There is no evidence of a volar or dorsal surface mass or cyst or lipoma. No demonstrated fluid distention of the tendon sheaths. No intramuscular edema or fluid collections or enlargement. 2. Previously described ganglion cyst of the right wrist on the January 14, 2024 ultrasound of the wrist exam is not seen on this study. Electronically Signed: Connor Mesa MD at 12:44 EDT ,
== END | disposition home or self-care (01) ==
PROVIDERS: PCP Internal Medicine; Referring Provider Orthopaedic Surgery Sports Medicine; Visit Provider Orthopaedic Surgery Sports Medicine
DX: R22.31 Localized swelling, mass and lump, right upper limb (principal)
CPT/HCPCS: 73221